=== PATIENT | male | born 2000 | race Caucasian/White ===

== ENCOUNTER 2020-07-19 10:35 | Outpatient (RCR) | payer OTHER, SELFPAY | END 2020-09-24 23:59 | LOC: IMMUN 10:35 | PROVIDERS: Visit Provider Family Medicine | DX: Z23 Encounter for immunization (principal) | CPT/HCPCS: 0001A; 0002A; 91300 ==

== ENCOUNTER → 2021-03-27 10:37 | Outpatient (CLI) | payer OTHER, SELFPAY | PROVIDERS: Visit Provider Family Medicine | DX: Z23 Encounter for immunization (principal) ==

== ENCOUNTER 2022-03-27 11:53 | Emergency (ER) | payer OTHER, SELFPAY ==
[2022-03-27 11:54] VITALS: BP 134/60; PULSE 84; RESP 14; TEMP 36.1; O2SAT 99; BMI 21.4
--- NOTE | 2022-03-27 12:02 | EKG12_ITS ---
Test Reason : Blood Pressure : / mmHG Vent. Rate : 068 BPM Atrial Rate : 068 BPM P-R Int : 122 ms QRS Dur : 094 ms QT Int : 354 ms P-R-T Axes : 045 052 036 degrees QTc Int : 376 ms Sinus rhythm with marked sinus arrhythmia Otherwise normal ECG Confirmed by JERZY LCOK, MARLENE ([id number]), general expeditor GRAY MERCEDES ([id number]) on 03/31/2022 11:05:22 AM Referred By: EZIO Confirmed By:JO BERTRAND MD
--- NOTE | 2022-03-27 12:44 | EX.ED.DYSGE1 ---
HPI History of Present Illness Chief Complaint: Chest Pain Informant: patient Narrative Narrative: 21-year-old male with no medical problems states that yesterday he bent over to take his pants off and he felt a pain just to the right side of his mid chest. Since that time it is continued to hurt. He notes pain with certain movements pain with deep breathing. States the chest is some slight sore to touch. He said there is a very focal area towards the bottom of his breastbone that is tender. He denies any cough or fever. No prior occurrences of this no recent illnesses PFSH PFSH Medical History no medical history Home Medications NK 03/27/22 [History Last Taken Unknown] Allergy/AdvReac Type Severity Reaction Status Date / Time No Known Allergies Allergy Verified 03/27/22 11:53 Social History Smoking Status: Never smoker ROS ROS ED Constitutional Constitutional ED: Denies chills, fever(s) or weight loss Eyes Eyes: Denies change in vision or diplopia ENT ENT ED: Denies ear pain, rhinorrhea or sore throat Cardiovascular Cardiovascular: Reports chest pain; Denies orthopnea, palpitations or racing heartbeat Respiratory/Chest Respiratory/Chest: Denies cough, dyspnea or orthopnea Gastrointestinal Gastrointestinal: Denies abdominal pain, diarrhea, nausea or vomiting Genitourinary Genitourinary ED: Denies dysuria, hematuria or urinary frequency Musculoskeletal Musculoskeletal: Denies arthralgias or myalgias Integumentary Denies abscess or rash Neurologic Neurologic: Denies headache(s) or weakness Psychiatric Psychiatric: Denies anxiety, depression, suicidal ideation or suicidal thoughts Endocrine Endocrinology: Denies polydipsia, polyphagia or polyuria Allergic/Immunologic Allergic/Immunologic ED: Denies mouth swelling, tongue swelling or urticaria EXAM Physical Exam Const Vital Signs: 03/27/22 11:54 03/27/22 12:40 Temperature 97 F L Temperature Source Temporal Pulse Rate 84 Respiratory Rate 14 Respiratory Effort Normal Non-Labored Blood Pressure 134/60 H Blood Pressure Mean 84 Pulse Ox 99 Oxygen Delivery Method Room Air Positive well nourished and well developed General Appearance ED: well developed HEENT Reports normocephalic, head/scalp atraumatic and moist mucous membranes Eyes PERRL and EOMs intact bilaterally Neck no lymphadenopathy, supple and no JVD Chest Wall Chest Narrative: Mild tenderness to palpation just to the right of the breastbone over the lower chest Pain is reproducible with certain movements. Resp normal respiratory effort and clear to auscultation bilaterally Cardio regular rate, regular rhythm and no murmurs GI normal to inspection, nondistended, normoactive bowel sounds and non-tender Palpation: soft Back/Spine no CVA tenderness and normal ROM Extremity normal to inspection General Extremety ED: Negative for edema General Extremity: Negative for edema Neuro oriented x3 and CN's II-XII intact bilaterally Sensorium / Orientation: alert Motor Exam: strength 5/5 throughout Psych mental status grossly normal Mood & Affect: Negative for depressed or tearful Skin no rashes or lesions noted and no wounds MDM MDM MDM Narrative Medical decision making narrative: My interpretation of the chest x-ray is no acute process. Clinically I believe the patient have a costochondritis. I do not palpate a deformity suggest costochondral separation. His EKG is normal. Would recommend supportive care and anti-inflammatories EKG Initial EKG: Attestation: I personally reviewed and interpreted this EKG as follows: Comments: Sinus rhythm with sinus arrhythmia and a ventricular rate of 68 bpm. No concerning features of ACS noted Discharge Plan Triage Chief Complaint: Chest Pain ED Provider: Musa Meredith Dx/Rx/DC Orders Clinical Impression: Acute costochondritis Instructions: ED Chest Wall Pain, Costochondritis Prescriptions: No Action NK Primary Care Provider: Care Physician,No Primary Referrals: Care Physician,No Primary [Primary Care Provider] - Activity Restrictions/Additional Instructions: I recommend 600 mg of ibuprofen every 6 hours to be taken with food for the next 7 days. Disposition Disposition: Home, Self Care
--- NOTE | 2022-03-27 12:52 | RAD_ITS ---
STUDY: X-RAY CHEST REASON FOR EXAM: Male, 21 years old. Chest pain TECHNIQUE: Single AP portable view of the chest. COMPARISON: None. FINDINGS: The lungs are clear and expanded. There is no demonstrated pleural abnormality. Normal size heart. Normal mediastinum and sebastian. Normal visualized pulmonary arteries. Normal visualized aortic arch and descending thoracic aorta. Normal visualized thoracic spine. Normal visualized ribs, clavicles, and shoulders. There is no demonstrated abnormality of the visualized soft tissue structures of the upper abdomen. RAD/Chest 1 View (Portable) IMPRESSION: Normal x-ray examination of the chest. Electronically Signed: Parrish Galloway MD at 13:13 EST ,
== END 2022-03-27 13:12 | disposition home or self-care (01) ==
PROVIDERS: Emergency Provider Emergency Medicine; Visit Provider Emergency Medicine
DX: M94.0 Chondrocostal junction syndrome [Tietze] (principal); R07.9 Chest pain, unspecified
CPT/HCPCS: 71045; 93005; 99282